=== PATIENT | female | born 1960 | race Caucasian/White ===

== ENCOUNTER 2019-03-01 18:01 | Inpatient (IN) | payer BC ==
[~2019-03-01] VITALS: Ht 154.9 cm; Wt 68.0 kg
[2019-03-01 18:13] VITALS: Ht 154.9 cm; Wt 68.0 kg
[2019-03-01 19:09] LABS: microscopic required? YES; urine erythrocyte 1+ (NEGATIVE)
[2019-03-01 19:10] LABS: PLATELET COUNT 305 x10^3mcL (130-400); RED CELL DISTRIBUTION WIDTH 12.7 % (11.5-14.5)
[2019-03-01 19:25] LABS: ALKALINE PHOSPHATASE 104 U/L (46-116); ALT/SGPT 39 U/L (14-59); AST/SGOT 22 U/L (15-37); BILIRUBIN TOTAL 1.3 mg/dL (0.20-1.00); CALCIUM 9.3 mg/dL (8.5-10.1); CARBON DIOXIDE 22.3 mmol/L (21-32); CREATININE SERUM 0.8 mg/dL (0.6-1.0); GFR1 > 60 mL/min; GLUCOSE SERUM 313 mg/dL (74-106); TOTAL PROTEIN, SERUM 7.4 g/dL (6.4-8.2)
[2019-03-01 19:40] LABS: CHLORIDE SERUM 98 mmol/L (98-107); POTASSIUM SERUM 3.1 mmol/L (3.5-5.1); SODIUM SERUM 131 mmol/L (136-145)
[2019-03-01] MEDS ORDERED: NAPROSYN500 MG PO (19:41)
[2019-03-01] MEDS ORDERED: CYCLOBENZAPRINE10 M1 PO (19:42)
[2019-03-01] MEDS ORDERED: CYCLOBENZAPRINE5 MG PO (19:43)
[2019-03-01] MEDS ORDERED: GENTLE LAXATIVE5 MG PO (19:44)
[2019-03-01] MEDS ORDERED: LEVOTHYROXIN0.075 M2 PO (19:44)
[2019-03-01 19:45] LABS: ALBUMIN 3.2 g/dL (3.4-5.0)
[2019-03-01] MEDS ORDERED: [UNRECOGNIZED DRUG - OTHER] PO (19:45)
[2019-03-01] MEDS ORDERED: LISINOPRIL10 MG GT (19:45)
[2019-03-01] MEDS ORDERED: OMEPRAZOLE20 M4 PO (19:46)
[2019-03-01] MEDS ORDERED: METFORMIN HCL500 MG (19:47)
[2019-03-01 20:29] LABS: BAND NEUTROPHIL 5 % (0-10); METAMYELOCTE 2 % (0-2); MONOCYTE 2 % (0-7); SEGMENTED NEUTROPHILS 87 % (37-75)
[2019-03-01 20:30] LABS: PLATELET MORPHOLOGY PLATELETS NORMAL; rbc morphology (normal/abnorm) NORMAL (NORMAL)
[2019-03-01 21:47] LABS: CHOLESTEROL/HDL RATIO 3.2; MAGNESIUM 1.5 mg/dL (1.8-2.4)
[2019-03-01 21:51] LABS: PHOSPHOROUS 0.8 mg/dL (2.5-4.9)
[2019-03-01 22:45] VITALS: BP 80/53
[2019-03-02] VITALS (7 sets, daily range): BP systolic 104–157; BP diastolic 58–85
[2019-03-02 06:26] LABS: CALCIUM 9.4 mg/dL (8.5-10.1); CARBON DIOXIDE 23.4 mmol/L (21-32); CHLORIDE SERUM 108 mmol/L (98-107); CREATININE SERUM 0.6 mg/dL (0.6-1.0); GFR1 > 60 mL/min; GLUCOSE SERUM 221 mg/dL (74-106); MAGNESIUM 1.8 mg/dL (1.8-2.4); PHOSPHOROUS 1.1 mg/dL (2.5-4.9); POTASSIUM SERUM 3.9 mmol/L (3.5-5.1); SODIUM SERUM 136 mmol/L (136-145)
[2019-03-02 06:48] LABS: BASOPHIL % 0.1 % (0-2); PLATELET COUNT 288 x10^3mcL (130-400); RED CELL DISTRIBUTION WIDTH 13.8 % (11.5-14.5)
[2019-03-03 05:26] VITALS: BP 116/55
[2019-03-03 07:01] LABS: PLATELET COUNT 278 x10^3mcL (130-400); RED CELL DISTRIBUTION WIDTH 13.4 % (11.5-14.5)
[2019-03-03 07:32] LABS: CALCIUM 10.1 mg/dL (8.5-10.1); CARBON DIOXIDE 21.1 mmol/L (21-32); CHLORIDE SERUM 104 mmol/L (98-107); CREATININE SERUM 0.6 mg/dL (0.6-1.0); GFR1 > 60 mL/min; GLUCOSE SERUM 204 mg/dL (74-106); MAGNESIUM 1.6 mg/dL (1.8-2.4); PHOSPHOROUS 1.3 mg/dL (2.5-4.9); POTASSIUM SERUM 3.7 mmol/L (3.5-5.1); SODIUM SERUM 139 mmol/L (136-145)
[2019-03-03 08:44] VITALS: BP 123/79
[2019-03-03 11:21] LABS: BAND NEUTROPHIL 5 % (0-10); BASOPHIL 0 % (0-2); METAMYELOCTE 2 % (0-2); MONOCYTE 10 % (0-7); MYELOCYTE 2 % (0-2); PLATELET MORPHOLOGY PLATELETS NORMAL; SEGMENTED NEUTROPHILS 71 % (37-75); rbc morphology (normal/abnorm) NORMAL (NORMAL)
[2019-03-03 12:15] VITALS: BP 109/87
[2019-03-03 16:42] VITALS: BP 101/58
[2019-03-03 20:54] VITALS: BP 107/68
[2019-03-03 20:58] VITALS: BP 107/68
[2019-03-04 05:31] VITALS: BP 159/88
[2019-03-04 09:20] VITALS: BP 126/70
[2019-03-04 10:29] LABS: CALCIUM 9.4 mg/dL (8.5-10.1); CARBON DIOXIDE 25.1 mmol/L (21-32); CHLORIDE SERUM 105 mmol/L (98-107); CREATININE SERUM 0.6 mg/dL (0.6-1.0); GFR1 > 60 mL/min; GLUCOSE SERUM 207 mg/dL (74-106); SODIUM SERUM 138 mmol/L (136-145)
[2019-03-04 10:33] LABS: BASOPHIL % 0.3 % (0-2); PLATELET COUNT 323 x10^3mcL (130-400); RED CELL DISTRIBUTION WIDTH 13.9 % (11.5-14.5)
[2019-03-04 13:24] VITALS: BP 139/83
[2019-03-04 16:33] VITALS: BP 119/75
[2019-03-04 20:37] VITALS: BP 143/82
[2019-03-05 05:51] VITALS: BP 148/91
[2019-03-05 06:44] LABS: CALCIUM 9.1 mg/dL (8.5-10.1); CARBON DIOXIDE 20.1 mmol/L (21-32); CREATININE SERUM 1.9 mg/dL (0.6-1.0); POTASSIUM SERUM 3.4 mmol/L (3.5-5.1)
[2019-03-05 06:59] LABS: PLATELET COUNT 387 x10^3mcL (130-400); RED CELL DISTRIBUTION WIDTH 13.7 % (11.5-14.5)
[2019-03-05 08:48] VITALS: BP 135/75
[2019-03-05 13:18] LABS: ATYPICAL LYMPH 2 %; BAND NEUTROPHIL 10 % (0-10); MONOCYTE 12 % (0-7); SEGMENTED NEUTROPHILS 60 % (37-75)
[2019-03-05 13:19] LABS: PLATELET MORPHOLOGY PLATELETS NORMAL; rbc morphology (normal/abnorm) NORMAL (NORMAL)
[2019-03-05 14:29] VITALS: BP 142/83
[2019-03-05 16:03] VITALS: BP 132/85
[2019-03-05 20:23] VITALS: BP 143/87
[2019-03-06 06:06] VITALS: BP 135/83
[2019-03-06 07:17] LABS: CALCIUM 9.3 mg/dL (8.5-10.1); CARBON DIOXIDE 22.8 mmol/L (21-32); CREATININE SERUM 3.5 mg/dL (0.6-1.0); POTASSIUM SERUM 4.7 mmol/L (3.5-5.1)
[2019-03-06 08:12] LABS: BASOPHIL % 0.4 % (0-2); RED CELL DISTRIBUTION WIDTH 13.5 % (11.5-14.5)
[2019-03-06] MEDS ORDERED: LIPI20 PO (08:14)
[2019-03-06] MEDS ORDERED: GOOD SENSE OMEP20 MG PO (08:14)
[2019-03-06] MEDS ORDERED: METOPROLOL TART25 M1 PO (08:14)
[2019-03-06] MEDS ORDERED: LEVOXYL0.075 MG PO (08:14)
[2019-03-06 08:16] LABS: PLATELET COUNT 428 x10^3mcL (130-400)
[2019-03-06 09:42] VITALS: BP 142/79
[2019-03-06 12:35] VITALS: BP 125/72
[2019-03-06 12:39] VITALS: BP 125/72
[2019-03-06 16:33] VITALS: BP 153/85
[2019-03-07 05:47] VITALS: BP 148/86
[2019-03-07 06:15] LABS: BASOPHIL % 0.4 % (0-2); RED CELL DISTRIBUTION WIDTH 13.9 % (11.5-14.5)
[2019-03-07 06:36] LABS: PLATELET COUNT 497 x10^3mcL (130-400)
[2019-03-07 07:37] LABS: CARBON DIOXIDE 16.8 mmol/L (21-32); POTASSIUM SERUM 4.6 mmol/L (3.5-5.1)
[2019-03-07 07:38] LABS: CALCIUM 9.1 mg/dL (8.5-10.1); CREATININE SERUM 4.4 mg/dL (0.6-1.0)
[2019-03-07 10:26] VITALS: BP 152/80
[2019-03-07 17:52] VITALS: BP 158/79
[2019-03-07 21:14] VITALS: BP 142/82
[2019-03-08 05:35] VITALS: BP 149/79
[2019-03-08 06:30] LABS: IRON 47 ug/dL (50-170)
[2019-03-08 06:33] LABS: TOTAL IRON BINDING CAPACITY 150 ug/dL (250-450)
[2019-03-08 07:07] LABS: CARBON DIOXIDE 12.6 mmol/L (21-32); MAGNESIUM 1.8 mg/dL (1.8-2.4)
[2019-03-08 07:08] LABS: CREATININE SERUM 4.7 mg/dL (0.6-1.0)
[2019-03-08 07:17] LABS: BASOPHIL % 0.4 % (0-2); RED CELL DISTRIBUTION WIDTH 13.8 % (11.5-14.5)
[2019-03-08 08:27] LABS: PLATELET COUNT 500 x10^3mcL (130-400)
[2019-03-08 10:22] VITALS: BP 138/115
[2019-03-08 17:46] VITALS: BP 145/85
[2019-03-08 21:11] VITALS: BP 129/69
[2019-03-09 05:44] VITALS: BP 152/74
[2019-03-09 06:18] LABS: BASOPHIL % 0.3 % (0-2); RED CELL DISTRIBUTION WIDTH 13.5 % (11.5-14.5)
[2019-03-09 06:55] LABS: CALCIUM 8.7 mg/dL (8.5-10.1); CARBON DIOXIDE 22.9 mmol/L (21-32); POTASSIUM SERUM 3.4 mmol/L (3.5-5.1)
[2019-03-09 06:56] LABS: CREATININE SERUM 4.8 mg/dL (0.6-1.0)
[2019-03-09 07:36] LABS: PLATELET COUNT 492 x10^3mcL (130-400)
[2019-03-09 08:56] VITALS: BP 125/88
[2019-03-09 16:45] VITALS: BP 150/79
[2019-03-09 19:25] VITALS: BP 140/78
[2019-03-10 06:16] VITALS: BP 125/83
[2019-03-10 07:09] LABS: CARBON DIOXIDE 26.8 mmol/L (21-32); POTASSIUM SERUM 3.4 mmol/L (3.5-5.1)
[2019-03-10 07:18] LABS: CREATININE SERUM 4.1 mg/dL (0.6-1.0)
[2019-03-10 08:23] LABS: BASOPHIL % 0.4 % (0-2); RED CELL DISTRIBUTION WIDTH 13.6 % (11.5-14.5)
[2019-03-10 08:29] LABS: PLATELET COUNT 596 x10^3mcL (130-400)
[2019-03-10 09:41] VITALS: BP 139/76
[2019-03-10 16:40] VITALS: BP 144/77
[2019-03-10 21:13] VITALS: BP 167/83
[2019-03-11 05:27] VITALS: BP 151/79
[2019-03-11 06:55] VITALS: BP 131/78
[2019-03-11 07:47] LABS: CARBON DIOXIDE 32.6 mmol/L (21-32); CREATININE SERUM 3.6 mg/dL (0.6-1.0); POTASSIUM SERUM 3.5 mmol/L (3.5-5.1)
[2019-03-11 09:04] LABS: BASOPHIL % 0.6 % (0-2); RED CELL DISTRIBUTION WIDTH 13.4 % (11.5-14.5)
[2019-03-11 09:45] VITALS: BP 144/87; BP 144/871
[2019-03-11 11:32] LABS: PLATELET COUNT 580 x10^3mcL (130-400)
[2019-03-11 17:36] VITALS: BP 159/79
[2019-03-11 20:57] VITALS: BP 128/71
[2019-03-12 06:04] VITALS: BP 145/75
[2019-03-12 06:35] LABS: CALCIUM 8.7 mg/dL (8.5-10.1); CARBON DIOXIDE 35.5 mmol/L (21-32); CREATININE SERUM 2.9 mg/dL (0.6-1.0); POTASSIUM SERUM 3.4 mmol/L (3.5-5.1)
[2019-03-12 09:15] VITALS: BP 164/81
[2019-03-12 12:47] VITALS: BP 164/81
== END 2019-03-12 15:52 | disposition home or self-care (01) | DRG 853 ==
LOC: ED 18:01 → DU 20:43 → MU 03-06 13:23
PROVIDERS: Emergency Medicine; Family Medicine; Internal Medicine Nephrology; Surgery; ADMIT Internal Medicine
PROC: 0FJ44ZZ Inspection of Gallbladder, Percutaneous Endoscopic Approach (ICD-10-PCS; 2019-03-03)
PROC: 0FT40ZZ Resection of Gallbladder, Open Approach (ICD-10-PCS; principal; 2019-03-03 12:00)
DX: A40.8 Other streptococcal sepsis (principal); I21.4 Non-ST elevation (NSTEMI) myocardial infarction; N17.0 Acute kidney failure with tubular necrosis; E87.1 Hypo-osmolality and hyponatremia; K80.12 Calculus of gallbladder with acute and chronic cholecystitis without obstruction; E11.65 Type 2 diabetes mellitus with hyperglycemia; E87.6 Hypokalemia; E83.39 Other disorders of phosphorus metabolism; E78.5 Hyperlipidemia, unspecified; D64.9 Anemia, unspecified; I10 Essential (primary) hypertension; E03.9 Hypothyroidism, unspecified; Z79.899 Other long term (current) drug therapy; Z98.891 History of uterine scar from previous surgery; Z90.710 Acquired absence of both cervix and uterus; Z53.31 Laparoscopic surgical procedure converted to open procedure
CPT/HCPCS: 82962; 83880; 97110-GP; 97116-GP; 97530-GP; A9500; J0330; J1170; J1815; J1885; J1940; J2405; J2543; J2704; J2710; J2785; J2916; J3010; J3370; J3475; J3480; J3490; J7030; J7070; Q0092

== ENCOUNTER 2019-03-14 02:54 | Inpatient (IN) | payer BC ==
[2019-03-14] VITALS (9 sets, daily range): BP systolic 98–202; BP diastolic 59–109
[~2019-03-14] VITALS: Ht 154.9 cm; Wt 64.0 kg
[~2019-03-14 02:54] MED LIST: CYCLOBENZAPRINE10 M1 PO; CYCLOBENZAPRINE5 MG PO; GENTLE LAXATIVE5 MG PO; GOOD SENSE OMEP20 MG PO; LEVOTHYROXIN0.075 M2 PO; LEVOXYL0.075 MG PO; LIPI20 PO; LISINOPRIL10 MG GT; METFORMIN HCL500 MG; METOPROLOL TART25 M1 PO; NAPROSYN500 MG PO; OMEPRAZOLE20 M4 PO; [UNRECOGNIZED DRUG - OTHER] PO
[2019-03-14 04:24] LABS: RED CELL DISTRIBUTION WIDTH 13.2 % (11.5-14.5)
[2019-03-14 04:28] LABS: BASOPHIL % 0 % (0-2)
[2019-03-14 04:30] LABS: PLATELET COUNT 558 x10^3mcL (130-400)
[2019-03-14 04:32] LABS: BILIRUBIN TOTAL 0.56 mg/dL (0.20-1.00); CALCIUM 9.5 mg/dL (8.5-10.1); CARBON DIOXIDE 20.8 mmol/L (21-32); TOTAL PROTEIN, SERUM 7.2 g/dL (6.4-8.2)
[2019-03-14 04:34] LABS: ALBUMIN 2.8 g/dL (3.4-5.0)
[2019-03-14 04:35] LABS: POTASSIUM SERUM 2.8 mmol/L (3.5-5.1)
[2019-03-14] MEDS ORDERED: ACETAMINOPHEN80 M2 (04:58)
[2019-03-14 05:18] LABS: UA SPECIFIC GRAVITY <=1.005 (1.005-1.035); microscopic required? YES; urine erythrocyte 1+ (NEGATIVE)
[2019-03-14 07:23] LABS: CHOLESTEROL/HDL RATIO 3.9; PHOSPHOROUS 2.8 mg/dL (2.5-4.9)
[2019-03-14 08:03] LABS: AMPHETAMINE QUAL UR NONE DETECTED (See below)
[2019-03-15 05:35] VITALS: BP 116/72
[2019-03-15 06:13] LABS: BASOPHIL % 0.3 % (0-2); PLATELET COUNT 308 x10^3mcL (130-400); RED CELL DISTRIBUTION WIDTH 13.7 % (11.5-14.5)
[2019-03-15 06:44] LABS: BILIRUBIN TOTAL 0.3 mg/dL (0.20-1.00); CALCIUM 8.4 mg/dL (8.5-10.1); CARBON DIOXIDE 23.7 mmol/L (21-32); CREATININE SERUM 2.3 mg/dL (0.6-1.0); MAGNESIUM 2.1 mg/dL (1.8-2.4); PHOSPHOROUS 2.5 mg/dL (2.5-4.9); POTASSIUM SERUM 3.9 mmol/L (3.5-5.1)
[2019-03-15 06:45] LABS: ALBUMIN 2.2 g/dL (3.4-5.0)
[2019-03-15 09:29] VITALS: BP 124/79
[2019-03-15 13:54] VITALS: BP 105/61
[2019-03-15 15:05] VITALS: BP 93/58
[2019-03-15 18:32] VITALS: BP 93/58
[2019-03-15 21:38] VITALS: BP 111/63
[2019-03-16 04:01] VITALS: BP 92/62
[2019-03-16 06:25] LABS: BASOPHIL % 0.1 % (0-2); PLATELET COUNT 190 x10^3mcL (130-400); RED CELL DISTRIBUTION WIDTH 13.9 % (11.5-14.5)
[2019-03-16 06:51] LABS: CALCIUM 8.8 mg/dL (8.5-10.1); CARBON DIOXIDE 19.3 mmol/L (21-32); CREATININE SERUM 2.2 mg/dL (0.6-1.0); MAGNESIUM 1.8 mg/dL (1.8-2.4); PHOSPHOROUS 3.6 mg/dL (2.5-4.9); POTASSIUM SERUM 3.7 mmol/L (3.5-5.1)
[2019-03-16 08:47] VITALS: BP 137/83
[2019-03-16 12:18] VITALS: BP 147/72
[2019-03-16 16:52] VITALS: BP 154/92
[2019-03-16 20:50] VITALS: BP 160/96
[2019-03-17 05:33] VITALS: BP 124/78
[2019-03-17 06:24] LABS: BASOPHIL % 0.1 % (0-2); PLATELET COUNT 257 x10^3mcL (130-400); RED CELL DISTRIBUTION WIDTH 14.1 % (11.5-14.5)
[2019-03-17 06:47] LABS: BILIRUBIN TOTAL 0.41 mg/dL (0.20-1.00); CALCIUM 9.6 mg/dL (8.5-10.1); CARBON DIOXIDE 17.9 mmol/L (21-32); CREATININE SERUM 1.9 mg/dL (0.6-1.0); MAGNESIUM 1.6 mg/dL (1.8-2.4); PHOSPHOROUS 3.3 mg/dL (2.5-4.9); POTASSIUM SERUM 3.3 mmol/L (3.5-5.1); TOTAL PROTEIN, SERUM 6.3 g/dL (6.4-8.2)
[2019-03-17 07:18] LABS: ALBUMIN 2.2 g/dL (3.4-5.0)
[2019-03-17 08:26] VITALS: BP 118/69
[2019-03-17] MEDS ORDERED: LEVAQUIN750 MG PO (11:31)
[2019-03-17] MEDS ORDERED: FLA500 PO (11:33)
[2019-03-17] MEDS ORDERED: LAC PO (11:34)
[2019-03-17 13:20] VITALS: BP 118/69
== END 2019-03-17 15:04 | disposition home or self-care (01) | DRG 862 ==
LOC: ED 02:54 → MU 05:51 → DU 05:51 → MU 03-16 15:15
PROVIDERS: Emergency Medicine; Internal Medicine; ADMIT Family Medicine
PROC: 0T9B3ZZ Drainage of Bladder, Percutaneous Approach (ICD-10-PCS; principal; 2019-03-14)
DX: T81.41XA Infection following a procedure, superficial incisional surgical site, initial encounter (principal); A41.9 Sepsis, unspecified organism; N17.0 Acute kidney failure with tubular necrosis; E43 Unspecified severe protein-calorie malnutrition; I21.A1 Myocardial infarction type 2; E11.65 Type 2 diabetes mellitus with hyperglycemia; E03.9 Hypothyroidism, unspecified; I10 Essential (primary) hypertension; E83.42 Hypomagnesemia; E87.6 Hypokalemia; Y83.8 Other surgical procedures as the cause of abnormal reaction of the patient, or of later complication, without mention of misadventure at the time of the procedure; Y92.89 Other specified places as the place of occurrence of the external cause; Z90.49 Acquired absence of other specified parts of digestive tract; Z87.440 Personal history of urinary (tract) infections; Z98.891 History of uterine scar from previous surgery
CPT/HCPCS: 32557; 82962; 83880; J1200; J1815; J2001; J2405; J2543; J3475; J3490; J7030; Q0092